=== PATIENT | female | born 1955 | race Hispanic/Latino ===

== ENCOUNTER 2019-08-18 14:29 | Emergency (ER) | payer MEDICARE ==
[~2019-08-18] VITALS: Ht 149.9 cm; Wt 71.8 kg
[2019-08-18] MEDS ORDERED: IBUPROFEN 600 MG TAB PO ONE (14:52)
[2019-08-18] MEDS ORDERED: IBUPROFEN 200 MG TAB ONE (15:00)
--- NOTE | 2019-08-18 15:22 | Diagnostic Imaging Report ---
Exam: Head CT without contrast History: Trauma, fall Comparison studies: None Technique: Axial images were obtained from the skull base to the vertex. Coronal and sagittal images reconstructed from the axial data. Dose modulation, iterative reconstruction, and/or weight based adjustment of the mA/kV was utilized to reduce the radiation dose to as low as reasonably achievable. Radiation dose: Total DLP: 969 mGy*cm. Estimated effective dose: DLP x 0.015 Intravenous contrast: None Findings: Scalp: Left occipital scalp hematoma. No retained hyperdense foreign body Bones: No fractures, blastic or lytic lesions. Brain sulci: Appropriate for age. Ventricles: Normal in size and configuration. No hydrocephalus. Extra-axial spaces: Small subarachnoid hemorrhage in the left central sulcus. Parenchyma: No mass, acute hemorrhage or acute or chronic cortical insults. Sellar/suprasellar region: No abnormalities. Craniocervical junction: Patent foramen magnum. No Chiari one malformation. Incidental findings: Atherosclerotic calcifications in the carotid siphons. IMPRESSION: 1. Left occipital scalp hematoma without underlying fracture. 2. Small left central sulcus subarachnoid hemorrhage. No other acute intracranial abnormalities. Findings discussed with Dr. Hernandez at 3:18 PM on 08/18/2019. Signed by: Dr. Landry Mcmanus M.D. on 08/18/2019 3:19 PM
--- NOTE | 2019-08-18 16:02 | NUR ---
Per verbal order by Dr. Boland, pt. placed on [employer]
--- NOTE | 2019-08-18 17:36 | NUR ---
report to EVELYN Abreu
== END 2019-08-18 17:00 | disposition short-term general hospital (02) ==
LOC: FSED 14:29
DX: S06.6X1A Traumatic subarachnoid hemorrhage with loss of consciousness of 30 minutes or less, initial encounter (principal); W18.30XA Fall on same level, unspecified, initial encounter; Y93.9 Activity, unspecified; Y92.410 Unspecified street and highway as the place of occurrence of the external cause; I10 Essential (primary) hypertension
CPT/HCPCS: 70450; 99285

== ENCOUNTER → 2020-03-15 | Day surgery (SDC) | payer OTHER ==
[2020-03-12 09:20] LABS: BASOPHILS % 0.6 % (0.0-1.0); EOSINOPHILS # (AUTO) 0.1 (0.0-0.4); EOSINOPHILS % 2.6 % (0.0-6.0); HEMATOCRIT 40.1 % (34.2-44.1); HEMOGLOBIN 12.8 g/dL (12.0-16.0); LYMPHOCYTES # (AUTO) 1.9 (1.0-3.2); LYMPHOCYTES % 34.8 % (18.0-39.1); MEAN CORPUSCULAR HGB CONC 31.9 g/dL (31-35); MEAN CORPUSCULAR VOLUME 90.7 fL (81-99); MONOCYTES # (AUTO) 0.6 (0.2-0.8); MONOCYTES % 10.8 % (4.4-11.3); NEUTROPHILS # (AUTO) 2.7 (2.1-6.9); PLATELET COUNT 178 x10e3/uL (140-360); RED BLOOD COUNT 4.42 x10e6/uL (3.6-5.1); RED CELL DISTRIBUTION WIDTH 12.8 % (11.7-14.4)
[~2020-03-15] MED LIST: CALCIUM PO; CITALOPRAM HBR20 MG PO; FISH OIL 1,0001 EAC2 PO; GABAPENTIN300 MG PO; LEVOTHYROXINE88 MCG PO; LIDOCAINE HCL 2% LOCAL INJ 5 ML SDV VIAL INJ ONE; LISINOPRIL10 MG PO; MIDAZOLAM HCL 2 MG/2 ML VIAL ONE; OMEPRAZOLE40 MG PO; ONE DAILY COMP1 EACH PO; PROPOFOL IV EMULSION 10 MG/ML 20 ML VIAL ONE; SIMVASTATIN20 MG PO; TOPIRAMATE100 MG PO; TURMERIC538 MG PO
[2020-03-15 07:20] VITALS: BP 112/73
== END | disposition home or self-care (01) ==
LOC: OR 05:22
PROVIDERS: ATTEND Internal Medicine Gastroenterology
DX: K29.50 Unspecified chronic gastritis without bleeding (principal); K21.9 Gastro-esophageal reflux disease without esophagitis; Z71.3 Dietary counseling and surveillance; I10 Essential (primary) hypertension; E66.3 Overweight; Z88.0 Allergy status to penicillin; Z01.810 Encounter for preprocedural cardiovascular examination; Z01.812 Encounter for preprocedural laboratory examination; Z11.59 Encounter for screening for other viral diseases; Z68.28 Body mass index [BMI] 28.0-28.9, adult
CPT/HCPCS: 36415; 43239; 85025; 87635; 88305; 88312; 93005; J2001; J2250

== ENCOUNTER → 2022-08-07 | Day surgery (SDC) | payer OTHER ==
[2022-08-01 10:26] LABS: BASOPHILS # (AUTO) 0.1 (0.0-0.1); BASOPHILS % 0.9 % (0.0-1.0); EOSINOPHILS # (AUTO) 0.2 (0.0-0.4); EOSINOPHILS % 2.9 % (0.0-6.0); HEMATOCRIT 41.1 % (34.2-44.1); HEMOGLOBIN 13.6 g/dL (12.0-16.0); LYMPHOCYTES % 36.3 % (18.0-39.1); MEAN CORPUSCULAR HEMOGLOBIN 29.9 pg (28-32); MEAN CORPUSCULAR HGB CONC 33.1 g/dL (31-35); MEAN CORPUSCULAR VOLUME 90.3 fL (81-99); MONOCYTES # (AUTO) 0.5 (0.2-0.8); MONOCYTES % 8.6 % (4.4-11.3); NEUTROPHILS # (AUTO) 2.8 (2.1-6.9); NEUTROPHILS % 51.1 % (38.7-80.0); PLATELET COUNT 191 x10e3/uL (140-360); RED BLOOD COUNT 4.55 x10e6/uL (3.6-5.1); RED CELL DISTRIBUTION WIDTH 12.3 % (11.7-14.4)
[~2022-08-07] MED LIST changes: +FAMOTIDINE20 MG PO; -LIDOCAINE HCL 2% LOCAL INJ 5 ML SDV VIAL INJ ONE; +METFORMIN HCL500 MG PO; -MIDAZOLAM HCL 2 MG/2 ML VIAL ONE; +MYSOLINE50 MG PO; -PROPOFOL IV EMULSION 10 MG/ML 20 ML VIAL ONE; +ZOLPIDEM TARTRAT5 MG PO
[2022-08-07 08:30] VITALS: BP 138/87
== END | disposition home or self-care (01) ==
LOC: OR 06:28
PROVIDERS: ATTEND Internal Medicine Gastroenterology
DX: R63.0 Anorexia (principal); K29.50 Unspecified chronic gastritis without bleeding; K44.9 Diaphragmatic hernia without obstruction or gangrene; K21.9 Gastro-esophageal reflux disease without esophagitis; R63.4 Abnormal weight loss; I10 Essential (primary) hypertension; E11.9 Type 2 diabetes mellitus without complications; E03.9 Hypothyroidism, unspecified; Z88.0 Allergy status to penicillin; Z01.810 Encounter for preprocedural cardiovascular examination; Z01.812 Encounter for preprocedural laboratory examination; Z79.84 Long term (current) use of oral hypoglycemic drugs; Z79.899 Other long term (current) drug therapy
CPT/HCPCS: 36415; 43239; 82948; 85025; 88305; 88312; 88342; 93005

== ENCOUNTER → 2023-01-22 | Day surgery (SDC) | payer MEDICARE, OTHER ==
[2023-01-13 13:14] LABS: BASOPHILS # (AUTO) 0.1 (0.0-0.1); BASOPHILS % 0.9 % (0.0-1.0); EOSINOPHILS # (AUTO) 0.1 (0.0-0.4); HEMATOCRIT 39.3 % (34.2-44.1); HEMOGLOBIN 12.9 g/dL (12.0-16.0); LYMPHOCYTES # (AUTO) 1.9 (1.0-3.2); LYMPHOCYTES % 33.1 % (18.0-39.1); MEAN CORPUSCULAR HEMOGLOBIN 29.6 pg (28-32); MEAN CORPUSCULAR HGB CONC 32.8 g/dL (31-35); MEAN CORPUSCULAR VOLUME 90.1 fL (81-99); MONOCYTES # (AUTO) 0.5 (0.2-0.8); MONOCYTES % 8.5 % (4.4-11.3); NEUTROPHILS # (AUTO) 3.2 (2.1-6.9); NEUTROPHILS % 55.3 % (38.7-80.0); PLATELET COUNT 185 x10e3/uL (140-360); RED BLOOD COUNT 4.36 x10e6/uL (3.6-5.1)
[~2023-01-22] MED LIST changes: +LACTATED RINGER'S 1,000 ML ONE; +LIDOCAINE HCL 2% LOCAL INJ 5 ML SDV VIAL INJ ONE; +PROPOFOL IV EMULSION 10 MG/ML 20 ML VIAL ONE
[2023-01-22 09:30] VITALS: BP 111/80
== END | disposition home or self-care (01) ==
LOC: OR 07:39
PROVIDERS: ATTEND Internal Medicine Gastroenterology
DX: Z12.11 Encounter for screening for malignant neoplasm of colon (principal); D12.5 Benign neoplasm of sigmoid colon; K57.30 Diverticulosis of large intestine without perforation or abscess without bleeding; K64.8 Other hemorrhoids; I10 Essential (primary) hypertension; Z88.0 Allergy status to penicillin; Z01.810 Encounter for preprocedural cardiovascular examination; Z01.812 Encounter for preprocedural laboratory examination; Z79.84 Long term (current) use of oral hypoglycemic drugs; Z79.899 Other long term (current) drug therapy; Z68.27 Body mass index [BMI] 27.0-27.9, adult
CPT/HCPCS: 36415 ×2; 45380; 82948; 85025; 88305; 93005; J2001; J2704; J7121; 45378; 45384

== ENCOUNTER 2025-06-26 07:29 | Emergency (ER) | payer MEDICARE ==
[~2025-06-26] VITALS: Ht 149.9 cm; Wt 71.2 kg
[~2025-06-26 07:29] MED LIST changes: +ANTIVERT25 M1 PO; +ATORVASTATIN CA20 MG PO; +KRILL OIL 1,501 EACH; -LACTATED RINGER'S 1,000 ML ONE; +LEVOTHYROXINE100 MCG; +LEXAPRO20 MG PO; -LIDOCAINE HCL 2% LOCAL INJ 5 ML SDV VIAL INJ ONE; +MAGNESIUM OXID400 MG PO; +MECLIZINE HCL12.5 MG PO; +MELOXICAM7.5 MG PO; +METFORMIN HCL500 M1 PO; +METFORMIN HCL500 M2 PO; +MYSOLINE50 MG; +NEURONTIN400 MG PO; -PROPOFOL IV EMULSION 10 MG/ML 20 ML VIAL ONE; +VITAMIN B-121000 MCG PO; +VITAMIN D350 MCG
[2025-06-26 07:41] VITALS: TEMP 98
[2025-06-26] MEDS: SODIUM CHLORIDE FLUSH 10 ML SYR IV ONE (08:12)
[2025-06-26] MEDS ORDERED: BACLOFEN10 MG PO (08:59)
[2025-06-26] MEDS ORDERED: LEVOTHYROXINE75 MCG PO (08:59)
[2025-06-26] MEDS ORDERED: ASPIRIN EC81 MG PO (08:59)
[2025-06-26 09:28] VITALS: PULSE 67; RESP 20; O2SAT 95
== END 2025-06-26 09:38 | disposition home or self-care (01) ==
LOC: FSED 07:40
DX: R00.2 Palpitations (principal); I10 Essential (primary) hypertension; E11.40 Type 2 diabetes mellitus with diabetic neuropathy, unspecified; E78.5 Hyperlipidemia, unspecified; E03.9 Hypothyroidism, unspecified; K21.9 Gastro-esophageal reflux disease without esophagitis; M06.9 Rheumatoid arthritis, unspecified; M54.2 Cervicalgia; G89.29 Other chronic pain; F41.9 Anxiety disorder, unspecified; F32.A Depression, unspecified; Z11.52 Encounter for screening for COVID-19; R94.31 Abnormal electrocardiogram [ECG] [EKG]
CPT/HCPCS: 0223U; 71046; 80053; 81003; 83518; 84484; 85025; 87400; 87420; 93005; 99284; J7030

== ENCOUNTER 2025-07-16 11:51 | Emergency (ER) | payer MEDICARE ==
[~2025-07-16] VITALS: Ht 160 cm; Wt 70.0 kg
[~2025-07-16 11:51] MED LIST changes: +ASPIRIN EC81 MG PO; +BACLOFEN10 MG PO; +LEVOTHYROXINE75 MCG PO
[2025-07-16 11:55] VITALS: PULSE 56; RESP 20; TEMP 98.3; O2SAT 95
[2025-07-16] MEDS: KETOROLAC TROMETHAMINE 30 MG/ML VIAL IM STA (13:04)
[2025-07-16] MEDS ORDERED: CYCLOBENZAPRINE5 MG PO (13:16)
[2025-07-16] MEDS ORDERED: ACETAMINOPHEN-1 EAC4 PO (13:18)
[2025-07-16] MEDS ORDERED: CEPHALEXIN500 MG PO (13:23)
== END 2025-07-16 13:34 | disposition home or self-care (01) ==
LOC: FSED 12:06
DX: M54.41 Lumbago with sciatica, right side (principal); N39.0 Urinary tract infection, site not specified; I10 Essential (primary) hypertension; E11.40 Type 2 diabetes mellitus with diabetic neuropathy, unspecified; E78.5 Hyperlipidemia, unspecified; E03.9 Hypothyroidism, unspecified; M06.9 Rheumatoid arthritis, unspecified; M54.2 Cervicalgia; G89.29 Other chronic pain; K21.9 Gastro-esophageal reflux disease without esophagitis; F41.9 Anxiety disorder, unspecified; F32.A Depression, unspecified
CPT/HCPCS: 81003; 87086; 99284; J1885; 87186